=== PATIENT | male | born 1955 | race Caucasian/White ===

== ENCOUNTER 2016-02-28 10:29 | Inpatient (IN) | payer MEDICARE ==
[~2016-02-28] VITALS: Ht 185.4 cm; Wt 142.6 kg
[2016-02-28] VITALS (12 sets, daily range): BP systolic 114–149; BP diastolic 58–97; PULSE 51–100; RESP 18–40; O2SAT 91–100
[~2016-02-28 10:29] MED LIST: ALBU8.5H2 IH; ASPI500T15 PO; CARV12.52 PO; GABA-500 PO; LISI-571 PO; MULT-1063 PO; OMEG-86 PO; POTA20TA16 PO; TORS20TA3 PO
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
[2016-02-28] MEDS ORDERED: Ipratropium 0.02% 0.5 mg/2.5 mL Inhalation Solution NEB ONE (10:47)
[2016-02-28] MEDS ORDERED: Albuterol 0.5% (5mg/mL) 20 mL Inhalation Solution ONE (10:47)
[2016-02-28] MEDS ORDERED: Pantoprazole Inj 80 MG, Pharmacy To Mix 1 EA in 0.9% Sodium Chloride 80 ML IV ONE ×2 (10:55)
[2016-02-28] MEDS ORDERED: Pantoprazole 4 mg/mL 10 mL Inj IVPUSH ONE (10:55)
[2016-02-28 11:04] LABS: BASOPHILS % (AUTO) 0.3 % (0-3); MONOCYTES % (AUTO) 14.4 % (4-12); Mean Corpuscular Hemoglobin 33.5 pg (27.0-35.0); Mean Corpuscular Volume 103.6 fL (81-100); NEUTROPHILS % (AUTO) 65.7 % (40-74); Platelet Count 145 bil/L (150-400)
[2016-02-28] MEDS ORDERED: MethylprednisoLONE Sodium Succinate 62.5 mg/mL 2 mL Inj IVPUSH ONE (11:05)
--- NOTE | 2016-02-28 12:01 | DRSVH ---
PROCEDURE: X-RAY CHEST ONE VIEW, PORTABLE ([id number]) INDICATIONS: dyspnea TECHNIQUE: One view of the chest was acquired. COMPARISON: [facility], , CHEST 1VW (PORTABLE), 08/29/2014, 12:17. FINDINGS: Surgical changes and devices: None. Lungs and pleura: Mild increased pulmonary vascularity is present. Mediastinum: Mediastinal contours appear normal. Heart size is mildly enlarged. Bones and chest wall: No suspicious bony lesions. Overlying soft tissues appear unremarkable. IMPRESSION: Mild cardiomegaly with increased pulmonary vascularity. Dictated by: Maye Cheatham M.D. on 02/28/2016 at 11:59 Approved by: Maye Cheatham M.D. on 02/28/2016 at 11:59
[2016-02-28 12:02] LABS: Magnesium 1.8 mg/dL (1.6-2.6); TROPONIN T < 0.010 ug/L (0.0-0.011)
[2016-02-28] MEDS ORDERED: Albuterol 2.5 mg/3 mL Inhalation Solution NEB ONE ×2 (12:35→15:20)
[2016-02-28] MEDS ORDERED: Albuterol-Ipratropium 3 mL Inhalation Solution NEB ONE (12:35)
[2016-02-28] MEDS ORDERED: Glucose 40% Oral Gel 15 Gm Tube PO PRN (15:40)
[2016-02-28] MEDS ORDERED: Albuterol 2.5 mg/3 mL Inhalation Solution NEB PRN (15:40)
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
[2016-02-28] MEDS ORDERED: Ondansetron 2 mg/mL 2 mL Inj IVPUSH PRN (15:45)
[2016-02-28] MEDS ORDERED: Alum-Mag Hydrox-Simeth 30 mL Suspension PO PRN (15:45)
[2016-02-28] MEDS: Insulin LISPRO 300 Unit/3 mL Inj SUBQ SCH ×2 (17:30→22:00)
--- NOTE | 2016-02-28 18:13 | NUR ---
admit pt admitted from the ER for SOB. pt has an IV in bilateral hands, placed on tele. pt denies pain or SOB currently. waiting on orders from doc
[2016-02-28] MEDS: MethylprednisoLONE Sodium Succinate 62.5 mg/mL 2 mL Inj IVPUSH SCH (20:52)
[2016-02-28] MEDS: Heparin 5,000 Unit/mL Inj SUBQ SCH (20:53)
[2016-02-28] MEDS: Albuterol 2.5 mg/3 mL Inhalation Solution NEB SCH (20:58)
[2016-02-28] MEDS ORDERED: ATOR40TA69 PO (22:08)
[2016-02-28] MEDS ORDERED: KEN25CR EXT (22:08)
[2016-02-28] MEDS ORDERED: CARV3.122 PO (22:08)
[2016-02-28] MEDS ORDERED: RIVA20TA PO (22:08)
[2016-02-28] MEDS ORDERED: CLOB15CR2 TP (22:08)
[2016-02-28] MEDS ORDERED: SILD20TA14 PO (22:08)
[2016-02-28] MEDS ORDERED: TORS100T3 PO (22:08)
[2016-02-28] MEDS ORDERED: CALC60CR3 TOPICAL (22:08)
[2016-02-28] MEDS ORDERED: GABA-504 PO (22:08)
[2016-02-28] MEDS ORDERED: DICL100G8 TOPICAL (22:08)
[2016-02-28] MEDS ORDERED: DESO15CR25 TOP (22:08)
--- NOTE | 2016-02-28 23:05 | NUR ---
Blood glucose BG level at 313, pt reported they just ate 2 ice cream cups and had some juice. Pt denied any insulin coverage, insistant that he does not have diabetes and does not want to be on any other medications. Pt informed that he has the option to refuse treatment but also spoke about the dangers/effects of high blood sugar. Pt still refused any coverage. Will continue to check blood sugars.
[2016-02-29] VITALS (7 sets, daily range): BP systolic 127–132; BP diastolic 73–82; PULSE 64–91; RESP 20–22; O2SAT 84–96
[2016-02-29] MEDS: Heparin 5,000 Unit/mL Inj SUBQ SCH (00:30)
[2016-02-29] MEDS: Albuterol 2.5 mg/3 mL Inhalation Solution NEB SCH ×4 (01:33→07:35)
[2016-02-29] MEDS ORDERED: Clobetasol Prop 0.05% 15 Gm Ointment TOPICAL PRN (02:00)
[2016-02-29] MEDS: MethylprednisoLONE Sodium Succinate 62.5 mg/mL 2 mL Inj IVPUSH SCH (04:50)
[2016-02-29] MEDS ORDERED: Pantoprazole 40 mg ER24 Tablet PO SCH (06:30)
[2016-02-29 06:39] LABS: BASOPHILS % (AUTO) 0.1 % (0-3); EOSINOPHILS % (AUTO) 0 % (0-5); MONOCYTES % (AUTO) 2.9 % (4-12); Mean Corpuscular Hemoglobin 33.4 pg (27.0-35.0); Mean Corpuscular Volume 102.7 fL (81-100); NEUTROPHILS % (AUTO) 89.2 % (40-74); Platelet Count 143 bil/L (150-400)
[2016-02-29] MEDS: Insulin LISPRO 300 Unit/3 mL Inj SUBQ SCH (08:00)
--- NOTE | 2016-02-29 09:25 | NUR ---
AMA Patient left AMA at 0925. At 0900 primary RN went into the room to give morning medications (due 0830) to patient. Patient was angry because he states that he takes his medications at home at 0600. Patient then stated that home medications are in the room. Primary RN explained to him that his home medications would need to go to the pharmacy for safe keeping. Patient became more angry and says he wants to leave. Primary RN called Charge nurse and charge nurse tried to explain to him hospital policy on medications. Patient kept interrupting the charge nurse stating I should have gotten my medications at 0600 not 3 hours later. Patient insisted on leaving. Charge nurse informed patient she was going to contact primary physician. Primary nurse tried again to give patient his morning medications. Patient insisted on primary nurse to give him his home medications. Primary nurse informed patient he cannot give his home medications per hospital policy. Patient then stated he will go out to his truck and take his home medication. Primary nurse readied the AMA paper work. Explained the risk of having difficulty breathing, fluid overload, edema, heart failure, and . Patient at first refuse to sign the AMA but then he signed it. Dc'd IV intact. Dc'd telemetry. Addendum: 02/29/16 at 1004 by GALDINO COOL RN Patient left room 0947.
--- NOTE | 2016-02-29 10:37 | NUR ---
SW updated that pt has left AMA. Andria Baltazar,STAFFING ACCOUNT MANAGER
--- NOTE | 2016-03-01 00:08 | PCM.DC.MED ---
Discharge Summary Date of Service Feb 29, 2016 Dates of Hospitalization Date of Hospital Admission Feb 28, 2016 at 17:15 Date of Discharge: Feb 29, 2016 Providers: Admitting Physician: Moreno Johnson MD Primary Care Physician: Other,Physician Attending Physician: Moreno Johnson MD Diagnosis at Time of Discharge Diagnosis at Time of Discharge Patient left AGAINST MEDICAL ADVICE prior to that he had been admitted with respiratory failure with hypoxia Procedures XRay, CTs & MRIs PROCEDURE: X-RAY CHEST ONE VIEW, PORTABLE ([id number]) INDICATIONS: dyspnea TECHNIQUE: One view of the chest was acquired. COMPARISON: [facility], , CHEST 1VW (PORTABLE), 08/29/2014, 12:17. FINDINGS: Surgical changes and devices: None. Lungs and pleura: Mild increased pulmonary vascularity is present. Mediastinum: Mediastinal contours appear normal. Heart size is mildly enlarged. Bones and chest wall: No suspicious bony lesions. Overlying soft tissues appear unremarkable. IMPRESSION: Mild cardiomegaly with increased pulmonary vascularity. Dictated by: Maye Cheatham M.D. on 02/28/2016 at 11:59 Approved by: Maye Cheatham M.D. on 02/28/2016 at 11:59 Brief History History of present illness` 60-year-old male, 3 days of shortness of breath associated with cough and wheezing, smoker. sister has a cold. no water weight gain no leg swelling. SOB w/ activity/lying down, uncomfortable when sleeping, s /p flu shot. productive sputum miller, without blood. not bed ridden. non home O2 dependent. needs refills on his inhalers, has not used his nebulizer, lacks parts. no sore throat. green, not black stool was due to brusselsprouts likely 2 days ago, current stool is his normal baseline In the ER, required for nebulizer treatments, Solu-Medrol, 3 L nasal cannula, 89 % on room air. BNP 1295, baseline, creatinine 1.15, in 2014 creatinine 0.93, coronavirus is positive. Concurrent complaints of black stool, guaiac negative in the ER per ER doc. Hospital Course Active issues and reason for admission Respiratory failure, with hypoxia, due to coronavirus bronchitis/COPD exacerbation -- Solu-Medrol, duo nebs, oxygen, when necessary BiPAP -- Tamiflu -- Hold torsemide, monitor BP Elevated glucose, preDM -- A1c pending -- Monitor on Solu-Medrol Chronic issues known prior to admission, present on admission Atrial fibrillation, consider echo if troponin rises, BNP is better than baseline, continue Coreg with holding parameters CKD3 CHF --resume all home meds, except for torsemide Smoker, when necessary nicotine patch DVT prophylaxis heparin scd ambulate Code full Disposition: Patient left AGAINST MEDICAL ADVICE before he could be seen Exam Vital Signs (Last) Date Time Temp Pulse Resp B/P Pulse Ox O2 Delivery O2 Flow Rate FiO2 02/29/16 09:33 36.8 91 20 132/82 96 Nasal Cannula 3.00 Exam Patient left AGAINST MEDICAL ADVICE before he could be seen. Test 02/28/16 10:56 02/28/16 16:00 02/29/16 05:47 Activated Partial Thromboplast Time 47.8sec (22.8-33.0) Hemoglobin A1c 6.8% (4.8-5.6) Lactic Acid Level 1.9mmol/L (0.4-2.0) Magnesium Level 1.8mg/dL (1.6-2.6) Pro-B-Type Natriuretic Peptide 1295pg/mL (0-210) Hold Urine Received (Received) White Blood Count 7.9th/mm3 (3.8-10.1) Red Blood Count 4.01mil/mm3 (4.40-5.80) Hemoglobin 13.4g/dL (13.8-17.2) Hematocrit 41.2% (41.0-50.0) Mean Corpuscular Volume 102.7fL (81-100) Mean Corpuscular Hemoglobin 33.4pg (27.0-35.0) Mean Corpuscular Hemoglobin Concent 32.5% (32.0-37.0) Red Cell Distribution Width 13.2% (12.3-15.4) Platelet Count 143bil/L (150-400) Neutrophils (%) (Auto) 89.2% (40-74) Lymphocytes (%) (Auto) 7.4% (14-46) Monocytes (%) (Auto) 2.9% (4-12) Eosinophils (%) (Auto) 0% (0-5) Basophils (%) (Auto) 0.1% (0-3) Sodium Level 135mEq/L (134-144) Potassium Level 4.4mEq/L (3.5-5.2) Chloride Level 92mEq/L (97-108) Carbon Dioxide Level 27mmol/L (18-29) Blood Urea Nitrogen 25mg/dL (8-27) Creatinine 1.37mg/dL (0.76-1.27) Estimat Glomerular Filtration Rate 56mL/min (>59) Glucose Level 373mg/dL (60-99) Calcium Level 8.4mg/dL (8.5-10.1) Total Bilirubin 0.2mg/dL (0.0-1.2) Aspartate Amino Transf (AST/SGOT) 18U/L (0-50) Alanine Aminotransferase (ALT/SGPT) 14U/L (0-44) Alkaline Phosphatase 73U/L (25-160) Troponin T 0.010ug/L (0.0-0.011) Total Protein 6.7g/dL (6.4-8.4) Albumin 3.4g/dL (3.4-5.0) Microbiology Results CORONOVIRUS OC43 Final 02/28/16-1456 Organism 1 CORONAVIRUS OC43 CORONOVIRUS 0C43 DETECTED TIME CALLED: 1454 DATE CALLED: 02/28/16 FLOOR/DOCTOR: JOSÉ Valles CALLED BY: TAHIR Name: TIRSO BEARDEN Age/Sex: 60/M Attend Dr: Batool Johnson MD Acct: [id number] Unit: [id number] Status: ADM IN Location: [facility] 3020-1 Re02/28/16 Disch: Specimen: [id number] Collected: 02/28/16 Status: ALEJANDRO Chan#: [id number] Received: 02/29/16 Source: SPUTUM EXP Sp Desc : Subm Dr: Moreno Johnson MD Ordered: GRAM SPT REFLEX, SPUTUM CULTURE Comments: Collected by Nurse/Unit? Y/N Y Procedure Result Verified Site Microbiology MIGUEL CULT SPUTUM GS Final 02/29/16 SPT GRAM STAIN FEW POLYS FEW EPITHELIAL CELLS FEW MIXED NORMAL SHERLEY This Spec is of good Quality and acceptable for Cult Discharge Medications Discharge Medications Atorvastatin Calcium (Atorvastatin Calcium) 40 Mg Tablet 40 MG PO DAILY ( Reported) Calcipotriene Cream (Calcipotriene Cream) 30 Appl/60 Gm Cream 1 APPLIC TOPICAL BID (Reported) Carvedilol (Carvedilol) 3.125 Mg Tablet 6.25 MG PO BID (Reported) Clobetasol Propionate (Clobetasol Propionate) 15 Gm Cream..g. 15 GM TP Daily M- F (Reported) Desonide (Desonide Cream) 15 Gm Cream..g. 1 APPLIC TOP BID (Reported) Diclofenac Gel (Voltaren Gel) 100 Gm Tube 2 GM TOPICAL QID (Reported) Gabapentin (Gabapentin) 400 Mg Capsule 800 MG PO BID (Reported) Lisinopril (Lisinopril) 5 Mg Tablet 5 MG PO DAILY (Reported) Rivaroxaban (Xarelto) 20 Mg Tablet 20 MG PO QPM (Reported) Torsemide (Torsemide) 100 Mg Tablet 100 MG PO DAILY (Reported) Triamcinolone Acet (Triamcinolone Acetonide Cream) 1 Applic/0.25 Gm Cr 1 APPLIC EXT BID (Reported) As needed Albuterol HFA (Proair HFA) 8.5 Gm Hfa.aer.ad 1-2 PUFFS IH Q4 PRN PRN For Wheezing (Reported) Sildenafil Citrate (Sildenafil) 20 Mg Tablet 20 MG PO DAILY PRN PRN for sexual activity (Reported) Followup Plan Disposition: Patient left the hospital AGAINST MEDICAL ADVICE before he could be seen. Patient Instructions Patient left the hospital AGAINST MEDICAL ADVICE before he could be seen. Philip Bradley MD Mar 01, 2016 00:08
== END 2016-02-29 09:47 | disposition left against medical advice (07) | DRG 189 ==
LOC: SED 10:29 → MPC 17:15
PROVIDERS: ADMIT Urology; ATTEND Urology
DX: J96.91 Respiratory failure, unspecified with hypoxia (principal); J44.1 Chronic obstructive pulmonary disease with (acute) exacerbation; I48.2 Chronic atrial fibrillation; N18.3 Chronic kidney disease, stage 3 (moderate); I50.9 Heart failure, unspecified; I12.9 Hypertensive chronic kidney disease with stage 1 through stage 4 chronic kidney disease, or unspecified chronic kidney disease; F17.210 Nicotine dependence, cigarettes, uncomplicated; B97.29 Other coronavirus as the cause of diseases classified elsewhere; L40.9 Psoriasis, unspecified